=== PATIENT | male | born 1950 | race Caucasian/White ===

== ENCOUNTER 2023-09-29 18:21 | Inpatient (IN) | payer MEDICARE, MEDICAID ==
[~2023-09-29] VITALS: Ht 180.3 cm; Wt 142.0 kg
[2023-09-29] MEDS ORDERED: nitroGLYCERIN 0.4mg SUBLingual tab SL PRN (18:55)
[2023-09-29] MEDS: morphine 4 MG/ML inj SYRINge IV ONE (19:29)
[2023-09-29 19:42] LABS: BASOPHILS # (AUTO) 0.1 X10'3 (0-0.2); BASOPHILS % (AUTO) 1.1 % (0-1); EOSINOPHILS # (AUTO) 0.3 X10'3 (0-0.9); EOSINOPHILS % (AUTO) 4.3 % (0-6); HEMATOCRIT 43.3 % (42.0-52.0); HEMOGLOBIN 14.3 g/dl (14.0-17.9); LYMPHOCYTES # (AUTO) 1.9 X10'3 (1.1-4.8); LYMPHOCYTES % (AUTO) 31.3 % (21-51); MEAN CORPUSCULAR HEMOGLOBIN 28.9 PG (27.0-31.0); MEAN CORPUSCULAR HGB CONC 33.1 g/dL (33.0-36.5); MEAN CORPUSCULAR VOLUME 87.5 FL (78-98); MEAN PLATELET VOLUME 7.8 FL (7.4-10.4); MONOCYTES # (AUTO) 0.5 X10'3 (0-0.9); MONOCYTES % (AUTO) 8.8 % (2-12); NEUTROPHILS # (AUTO) 3.3 X10'3 (1.8-7.7); NEUTROPHILS % (AUTO) 54.5 % (42-75); PLATELET COUNT 101 X10'3 (140-440); RED BLOOD COUNT 4.95 X10'6 (4.70-6.10); RED CELL DISTRIBUTION WIDTH 16.4 % (11.5-14.5)
[2023-09-29 19:59] LABS: ALBUMIN 2.6 G/DL (3.4-5.0); ANION GAP 6 (8-16); BLOOD UREA NITROGEN 25 MG/DL (7-18); BUN/CREATININE RATIO 30.5 (10.0-20.0); CALCIUM 8.4 MG/DL (8.5-10.1); CHLORIDE 107 MMOL/L (99-107); CREATININE 0.82 MG/DL (0.60-1.10); GLUCOSE 117 MG/DL (70-104); LIPASE 32 U/L (16-77); POTASSIUM 4.5 MMOL/L (3.5-5.1); PRO BRAIN NATRIURETIC PEPTIDE 3529 PG/ML (0-125); SODIUM 140 MMOL/L (135-145); TOTAL CARBON DIOXIDE 27.5 MMOL/L (24-32); eCRCL 84 ML/MIN; eGFR > 90 ML/MIN
[2023-09-29] MEDS: normal saline 1000ml 1,000 ML IV ONE (21:16)
[2023-09-29] MEDS: fentaNYL/PF 50MCG/1 ML 2ML syringe IV ONE (21:16)
[2023-09-29 21:17] LABS: D-DIMER 0.45 MG/L FEU (0-0.50)
[2023-09-29] MEDS: diphenhydrAMINE 50 mg/ml inj IV ONE (22:33)
[2023-09-30] MEDS ORDERED: magnesium hydroxide 30ml (MOM) UD suspension PO PRN (01:00)
[2023-09-30] MEDS ORDERED: magnesium 4gm in 100ml NS 100 ML IV PRN (01:00)
[2023-09-30] MEDS ORDERED: acetaminophen 325mg tablet PO PRN (01:00)
[2023-09-30] MEDS ORDERED: potassium Cl 40MEQ/1/2NS 520ml 520 ML IV PRN (01:00)
[2023-09-30] MEDS ORDERED: mag hydrox/Alum hydrox/simeth 30ml oral suspension PO PRN (01:00)
[2023-09-30] MEDS ORDERED: ondansetron/PF 4mg/2ml inj IV PRN (01:00)
[2023-09-30] MEDS ORDERED: magnesium Cl slow-release 64mg tablet PO PRN (01:00)
[2023-09-30] MEDS ORDERED: potassium Cl 20 mEq SR tablet PO PRN ×2 (01:00)
[2023-09-30] MEDS ORDERED: nitroGLYCERIN 0.4mg SUBLingual tab SL PRN (01:05)
[2023-09-30] MEDS ORDERED: aminophylline 250mg/10ml inj. IV PRN (01:05)
[2023-09-30] MEDS ORDERED: metoprolol tartrate 1mg/ml inj IV PRN (01:05)
[2023-09-30] MEDS ORDERED: regadenoson 0.4mg/5ml syringe IV PRN (01:05)
[2023-09-30] MEDS: docusate sod 100mg capsule PO SCH (07:12)
[2023-09-30] MEDS: oxyCODONE SR 10mg (sust. release) tab PO ONE (07:15)
[2023-09-30] MEDS ORDERED: APIX5TAB3 PO (07:21)
[2023-09-30] MEDS ORDERED: METH-806 PO (07:21)
[2023-09-30] MEDS ORDERED: LORA-268 (07:21)
[2023-09-30] MEDS ORDERED: OXYC15TA (07:21)
[2023-09-30] MEDS ORDERED: FOLI1TAB27 PO (07:21)
[2023-09-30] MEDS ORDERED: ATOR40TA72 PO (07:21)
[2023-09-30] MEDS ORDERED: LEVO150T8 PO (07:21)
[2023-09-30] MEDS ORDERED: TEST200V33 IM (07:21)
[2023-09-30] MEDS ORDERED: SOTA80TA (07:21)
[2023-09-30] MEDS ORDERED: heparin, porcine 5000 units/ml vial SQ SCH (08:00)
[2023-09-30] MEDS: oxyCODONE IR 5mg (immed. release) tablet PO ONE (08:39)
[2023-09-30] MEDS: sotalol HCl 40mg (1/2 tablet) PO SCH (08:40)
[2023-09-30] MEDS: apixaban 5mg tablet PO SCH (08:40)
[2023-09-30] MEDS: furosemide 40mg/4ml inj IV SCH (09:38)
[2023-09-30] MEDS: diltiazem 5mg/ml 5ml inj. IV ONE (09:38)
[2023-09-30] MEDS: methadone 5mg tablet PO SCH (13:44)
[2023-09-30] MEDS: flecainide 50mg tablet PO SCH (18:12)
[2023-09-30] MEDS: metoprolol tartrate 50mg tablet PO SCH (18:12)
[2023-09-30] MEDS ORDERED: OXYC15TA PO (19:21)
[2023-09-30] MEDS ORDERED: apixaban 5mg tablet PO SCH (20:00)
[2023-09-30 23:00] VITALS: BP 130/50; PULSE 107; PULSE 74; RESP 14; TEMP 97.6; O2SAT 94
[2023-10-01] VITALS (7 sets, daily range): BP systolic 83–130; BP diastolic 48–83; PULSE 56–104; RESP 14–20; TEMP 97.1–98.2; O2SAT 93–99
[2023-10-01] MEDS: oxyCODONE IR 5mg (immed. release) tablet PO ONE (00:35)
[2023-10-01 07:49] LABS: BASOPHILS % (AUTO) 0.6 % (0-1); EOSINOPHILS # (AUTO) 0.2 X10'3 (0-0.9); EOSINOPHILS % (AUTO) 3.4 % (0-6); HEMATOCRIT 44.3 % (42.0-52.0); HEMOGLOBIN 14.6 g/dl (14.0-17.9); LYMPHOCYTES # (AUTO) 2.4 X10'3 (1.1-4.8); LYMPHOCYTES % (AUTO) 33.4 % (21-51); MEAN CORPUSCULAR HEMOGLOBIN 28.9 PG (27.0-31.0); MEAN CORPUSCULAR VOLUME 87.5 FL (78-98); MEAN PLATELET VOLUME 8.9 FL (7.4-10.4); MONOCYTES # (AUTO) 0.6 X10'3 (0-0.9); MONOCYTES % (AUTO) 8.4 % (2-12); NEUTROPHILS # (AUTO) 3.9 X10'3 (1.8-7.7); NEUTROPHILS % (AUTO) 54.2 % (42-75); PLATELET COUNT 105 X10'3 (140-440); RED BLOOD COUNT 5.06 X10'6 (4.70-6.10); RED CELL DISTRIBUTION WIDTH 16.4 % (11.5-14.5); WHITE BLOOD COUNT 7.2 X10'3 (4.5-11.0)
[2023-10-01 08:10] LABS: ALBUMIN 2.5 G/DL (3.4-5.0); ANION GAP 6 (8-16); BLOOD UREA NITROGEN 22 MG/DL (7-18); BUN/CREATININE RATIO 22.4 (10.0-20.0); CALCIUM 7.8 MG/DL (8.5-10.1); CHLORIDE 101 MMOL/L (99-107); CREATININE 0.98 MG/DL (0.60-1.10); GLUCOSE 127 MG/DL (70-104); POTASSIUM 3.7 MMOL/L (3.5-5.1); SODIUM 135 MMOL/L (135-145); TOTAL CARBON DIOXIDE 27.9 MMOL/L (24-32); eCRCL 70 ML/MIN; eGFR 75 ML/MIN
[2023-10-01] MEDS: atorvastatin 20mg tablet PO SCH (08:57)
[2023-10-01] MEDS: folic acid 1mg tablet PO SCH (08:57)
[2023-10-01] MEDS: levoTHYROXINE 75mcg tablet PO SCH (09:01)
[2023-10-01] MEDS: furosemide 20MG tablet PO ONE (10:16)
[2023-10-01] MEDS: oxyCODONE IR 5mg (immed. release) tablet PO SCH (14:00)
[2023-10-01] MEDS: furosemide 40mg tablet PO SCH (20:36)
[2023-10-02] VITALS (8 sets, daily range): BP systolic 95–133; BP diastolic 52–79; PULSE 63–80; RESP 16–20; TEMP 96.9–98; O2SAT 94–99
[2023-10-02] MEDS: temazepam 15mg capsule PO ONE (00:27)
[2023-10-02 06:15] LABS: BASOPHILS % (AUTO) 0.6 % (0-1); EOSINOPHILS # (AUTO) 0.3 X10'3 (0-0.9); EOSINOPHILS % (AUTO) 3.3 % (0-6); HEMATOCRIT 47.4 % (42.0-52.0); HEMOGLOBIN 15.7 g/dl (14.0-17.9); LYMPHOCYTES # (AUTO) 3.1 X10'3 (1.1-4.8); LYMPHOCYTES % (AUTO) 39.1 % (21-51); MEAN CORPUSCULAR HEMOGLOBIN 28.8 PG (27.0-31.0); MEAN CORPUSCULAR HGB CONC 33.2 g/dL (33.0-36.5); MEAN CORPUSCULAR VOLUME 86.6 FL (78-98); MEAN PLATELET VOLUME 8.1 FL (7.4-10.4); MONOCYTES # (AUTO) 0.7 X10'3 (0-0.9); MONOCYTES % (AUTO) 8.8 % (2-12); NEUTROPHILS # (AUTO) 3.9 X10'3 (1.8-7.7); NEUTROPHILS % (AUTO) 48.2 % (42-75); PLATELET COUNT 127 X10'3 (140-440); RED BLOOD COUNT 5.47 X10'6 (4.70-6.10); RED CELL DISTRIBUTION WIDTH 16.1 % (11.5-14.5)
[2023-10-02 06:31] LABS: ALBUMIN 2.8 G/DL (3.4-5.0); ANION GAP 7 (8-16); BLOOD UREA NITROGEN 28 MG/DL (7-18); BUN/CREATININE RATIO 26.7 (10.0-20.0); CALCIUM 8.5 MG/DL (8.5-10.1); CHLORIDE 101 MMOL/L (99-107); CREATININE 1.05 MG/DL (0.60-1.10); GLUCOSE 106 MG/DL (70-104); POTASSIUM 4.3 MMOL/L (3.5-5.1); SODIUM 138 MMOL/L (135-145); eCRCL 66 ML/MIN; eGFR 69 ML/MIN
[2023-10-02] MEDS ORDERED: FURO40TA4 PO (10:57)
[2023-10-02] MEDS ORDERED: METO50TA16 PO (10:57)
[2023-10-02] MEDS ORDERED: TAM50T PO (10:57)
== END 2023-10-02 12:30 | disposition home or self-care (01) | DRG 291 ==
LOC: ER 18:21 → ED HOLD 09-30 01:04 → PCU 3S 09-30 22:50
PROVIDERS: ADMIT Internal Medicine Sleep Medicine; ATTEND Internal Medicine
DX: I11.0 Hypertensive heart disease with heart failure (principal); I50.33 Acute on chronic diastolic (congestive) heart failure; Z68.41 Body mass index [BMI] 40.0-44.9, adult; I48.0 Paroxysmal atrial fibrillation; G47.33 Obstructive sleep apnea (adult) (pediatric); I20.9 Angina pectoris, unspecified; E66.9 Obesity, unspecified; E03.9 Hypothyroidism, unspecified; G89.4 Chronic pain syndrome; E78.00 Pure hypercholesterolemia, unspecified
CPT/HCPCS: 36415; 71045; 80048; 83690; 83735; 83880; 84443; 84484; 85025; 85379; 87081; 93005; 93306; 99285; A6590; G0378; J1200; J1940; J3010; J3490; J7030

== ENCOUNTER 2023-10-13 14:39 | Inpatient (IN) | payer MEDICARE, MEDICAID ==
[~2023-10-13] VITALS: Ht 177.8 cm; Wt 113.0 kg
[~2023-10-13 14:39] MED LIST: APIX5TAB3 PO; ATOR40TA72 PO; FOLI1TAB27 PO; FURO40TA4 PO; LEVO150T8 PO; LORA-268; METH-806 PO; METO50TA16 PO; OXYC15TA PO; TAM50T PO; TEST200V33 IM
[2023-10-13 15:20] LABS: BASOPHILS % (AUTO) 0.6 % (0-1); EOSINOPHILS # (AUTO) 0.2 X10'3 (0-0.9); EOSINOPHILS % (AUTO) 2.8 % (0-6); HEMATOCRIT 46.6 % (42.0-52.0); HEMOGLOBIN 15.3 g/dl (14.0-17.9); LYMPHOCYTES # (AUTO) 1.9 X10'3 (1.1-4.8); LYMPHOCYTES % (AUTO) 25.5 % (21-51); MEAN CORPUSCULAR HGB CONC 32.9 g/dL (33.0-36.5); MEAN CORPUSCULAR VOLUME 88.4 FL (78-98); MEAN PLATELET VOLUME 7.6 FL (7.4-10.4); MONOCYTES # (AUTO) 0.5 X10'3 (0-0.9); MONOCYTES % (AUTO) 6.6 % (2-12); NEUTROPHILS # (AUTO) 4.9 X10'3 (1.8-7.7); NEUTROPHILS % (AUTO) 64.5 % (42-75); PLATELET COUNT 140 X10'3 (140-440); RED BLOOD COUNT 5.27 X10'6 (4.70-6.10); WHITE BLOOD COUNT 7.6 X10'3 (4.5-11.0)
[2023-10-13] MEDS: furosemide 10 MG/1 ML 10ml inj IV ONE (15:25)
[2023-10-13 15:48] LABS: ALBUMIN 2.9 G/DL (3.4-5.0); ANION GAP 3 (8-16); BLOOD UREA NITROGEN 21 MG/DL (7-18); BUN/CREATININE RATIO 23.6 (10.0-20.0); CHLORIDE 104 MMOL/L (99-107); CREATININE 0.89 MG/DL (0.60-1.10); GLUCOSE 114 MG/DL (70-104); MAGNESIUM 2.1 MG/DL (1.5-2.4); POTASSIUM 4.4 MMOL/L (3.5-5.1); PRO BRAIN NATRIURETIC PEPTIDE 1762 PG/ML (0-125); SODIUM 139 MMOL/L (135-145); TOTAL CARBON DIOXIDE 32.3 MMOL/L (24-32); eCRCL 75 ML/MIN; eGFR 84 ML/MIN
[2023-10-13] MEDS: diltiazem 5mg/ml 5ml inj. IV ONE ×3 (17:10→23:51)
[2023-10-13] MEDS ORDERED: acetaminophen 325mg tablet PO PRN ×2 (17:45)
[2023-10-13] MEDS ORDERED: morphine 2 MG/ML inj. syringe IV PRN ×2 (17:45)
[2023-10-13] MEDS ORDERED: HYDROcodone/acetaminophen 5mg/325mg tablet PO PRN (17:45)
[2023-10-13] MEDS ORDERED: ondansetron/PF 4mg/2ml inj IV PRN (17:45)
[2023-10-13] MEDS ORDERED: mag hydrox/Alum hydrox/simeth 30ml oral suspension PO PRN (17:45)
[2023-10-13] MEDS ORDERED: magnesium hydroxide 30ml (MOM) UD suspension PO PRN (17:45)
[2023-10-13] MEDS ORDERED: SOTA80TA PO (18:09)
[2023-10-13] MEDS: oxyCODONE IR 5mg (immed. release) tablet PO SCH (18:56)
[2023-10-13 19:07] LABS: POTASSIUM 4.3 MMOL/L (3.5-5.1)
[2023-10-13] MEDS: docusate sod 100mg capsule PO SCH (20:00)
[2023-10-13] MEDS: apixaban 5mg tablet PO SCH (20:43)
[2023-10-13] MEDS: furosemide 20 MG/2 ML vial IV SCH (21:19)
[2023-10-13 22:00] VITALS: BP 107/71; PULSE 70; RESP 15; TEMP 98.3; O2SAT 97
[2023-10-13] MEDS: methadone 5mg tablet PO SCH (22:00)
[2023-10-14] VITALS (10 sets, daily range): BP systolic 91–149; BP diastolic 50–90; PULSE 61–127; RESP 12–20; TEMP 97.6–98.2; O2SAT 92–97
[2023-10-14] MEDS: flecainide 50mg tablet PO SCH (05:17)
[2023-10-14] MEDS: metoprolol tartrate 50mg tablet PO SCH (05:17)
[2023-10-14] MEDS: levoTHYROXINE 75mcg tablet PO SCH (07:18)
[2023-10-14] MEDS: folic acid 1mg tablet PO SCH (07:19)
[2023-10-14] MEDS: atorvastatin 20mg tablet PO SCH (07:19)
[2023-10-14 09:08] LABS: BASOPHILS % (AUTO) 0.3 % (0-1); EOSINOPHILS # (AUTO) 0.3 X10'3 (0-0.9); HEMATOCRIT 48.9 % (42.0-52.0); HEMOGLOBIN 16.2 g/dl (14.0-17.9); LYMPHOCYTES # (AUTO) 3.1 X10'3 (1.1-4.8); LYMPHOCYTES % (AUTO) 32.7 % (21-51); MEAN CORPUSCULAR HEMOGLOBIN 29.3 PG (27.0-31.0); MEAN CORPUSCULAR HGB CONC 33.1 g/dL (33.0-36.5); MEAN CORPUSCULAR VOLUME 88.5 FL (78-98); MEAN PLATELET VOLUME 7.9 FL (7.4-10.4); MONOCYTES # (AUTO) 0.6 X10'3 (0-0.9); MONOCYTES % (AUTO) 6.6 % (2-12); NEUTROPHILS # (AUTO) 5.5 X10'3 (1.8-7.7); NEUTROPHILS % (AUTO) 57.4 % (42-75); PLATELET COUNT 178 X10'3 (140-440); RED BLOOD COUNT 5.52 X10'6 (4.70-6.10); RED CELL DISTRIBUTION WIDTH 17.2 % (11.5-14.5); WHITE BLOOD COUNT 9.5 X10'3 (4.5-11.0)
[2023-10-14 09:56] LABS: ALBUMIN 3.1 G/DL (3.4-5.0); ANION GAP 9 (8-16); BLOOD UREA NITROGEN 22 MG/DL (7-18); BUN/CREATININE RATIO 21.8 (10.0-20.0); CALCIUM 8.9 MG/DL (8.5-10.1); CHLORIDE 99 MMOL/L (99-107); CREATININE 1.01 MG/DL (0.60-1.10); POTASSIUM 4.1 MMOL/L (3.5-5.1); SODIUM 137 MMOL/L (135-145); eCRCL 66 ML/MIN; eGFR 72 ML/MIN
[2023-10-14 10:06] LABS: GLUCOSE 120 MG/DL (70-104)
[2023-10-14] MEDS: LIDOcaine 5% patch TP SCH (10:58)
[2023-10-14] MEDS: diltiazem 30mg tablet PO SCH (10:58)
[2023-10-14] MEDS ORDERED: ondansetron 4mg rapidly disintigrating tab PO PRN (13:33)
[2023-10-14] MEDS: temazepam 15mg capsule PO ONE (22:56)
[2023-10-15 02:00] VITALS: BP 96/68; PULSE 60; RESP 19; TEMP 97.6; O2SAT 95
[2023-10-15] MEDS ORDERED: zolpidem 5mg tablet PO PRN (03:30)
[2023-10-15 04:17] VITALS: BP 119/78; PULSE 119
[2023-10-15] MEDS: metoprolol tartrate 1mg/ml inj IV ONE (04:19)
[2023-10-15 06:00] VITALS: BP 110/85; PULSE 98; RESP 17; TEMP 97.7; O2SAT 95
[2023-10-15] MEDS: diltiazem CD 120mg capsule (once-daily) PO SCH (07:41)
[2023-10-15 07:43] LABS: BASOPHILS % (AUTO) 0.3 % (0-1); EOSINOPHILS # (AUTO) 0.3 X10'3 (0-0.9); EOSINOPHILS % (AUTO) 2.7 % (0-6); HEMATOCRIT 46.1 % (42.0-52.0); HEMOGLOBIN 15.2 g/dl (14.0-17.9); LYMPHOCYTES # (AUTO) 2.4 X10'3 (1.1-4.8); LYMPHOCYTES % (AUTO) 25.5 % (21-51); MEAN CORPUSCULAR HGB CONC 32.9 g/dL (33.0-36.5); MEAN CORPUSCULAR VOLUME 88.1 FL (78-98); MEAN PLATELET VOLUME 7.9 FL (7.4-10.4); MONOCYTES # (AUTO) 0.7 X10'3 (0-0.9); MONOCYTES % (AUTO) 7.8 % (2-12); NEUTROPHILS # (AUTO) 5.9 X10'3 (1.8-7.7); NEUTROPHILS % (AUTO) 63.7 % (42-75); PLATELET COUNT 155 X10'3 (140-440); RED BLOOD COUNT 5.23 X10'6 (4.70-6.10); RED CELL DISTRIBUTION WIDTH 16.9 % (11.5-14.5); WHITE BLOOD COUNT 9.3 X10'3 (4.5-11.0)
[2023-10-15 07:48] LABS: ALBUMIN 3.1 G/DL (3.4-5.0); ANION GAP 4 (8-16); BLOOD UREA NITROGEN 26 MG/DL (7-18); BUN/CREATININE RATIO 23.9 (10.0-20.0); CALCIUM 8.9 MG/DL (8.5-10.1); CHLORIDE 99 MMOL/L (99-107); CREATININE 1.09 MG/DL (0.60-1.10); GLUCOSE 102 MG/DL (70-104); POTASSIUM 4.3 MMOL/L (3.5-5.1); SODIUM 136 MMOL/L (135-145); TOTAL CARBON DIOXIDE 33.1 MMOL/L (24-32); eCRCL 61 ML/MIN; eGFR 66 ML/MIN
[2023-10-15 08:00] VITALS: RESP 17; O2SAT 95
[2023-10-15] MEDS ORDERED: CARCD120C PO (10:01)
[2023-10-15] MEDS ORDERED: METO50TA16 PO (10:01)
[2023-10-15 11:00] VITALS: BP 91/56; PULSE 91; RESP 15; TEMP 97.8; O2SAT 93
[2023-10-15 11:48] VITALS: RESP 16
== END 2023-10-15 12:58 | disposition home or self-care (01) | DRG 309 ==
LOC: ER 14:39 → ED HOLD 17:44 → PCU 3S 21:47
PROVIDERS: ADMIT Internal Medicine; ATTEND Internal Medicine
DX: I48.0 Paroxysmal atrial fibrillation (principal); Z68.41 Body mass index [BMI] 40.0-44.9, adult; I50.9 Heart failure, unspecified; E66.01 Morbid (severe) obesity due to excess calories; I27.81 Cor pulmonale (chronic); E03.9 Hypothyroidism, unspecified; G47.30 Sleep apnea, unspecified; G89.29 Other chronic pain; Z79.01 Long term (current) use of anticoagulants; Z79.899 Other long term (current) drug therapy
CPT/HCPCS: 36415; 71045; 80048; 83735; 83880; 84132; 84484; 85025; 87081; 93005; 96374; 96375; 99285; A6258; G0378; J1940; J3490

== ENCOUNTER 2024-07-06 15:12 | Emergency (ER) | payer MEDICARE, MEDICAID ==
[~2024-07-06] VITALS: Ht 180.3 cm; Wt 125.2 kg
[~2024-07-06 15:12] MED LIST changes: +BUPR1FIL20 SL; +CARCD120C PO; +FLO0.4C PO; -METH-806 PO; -OXYC15TA PO; -TEST200V33 IM; +VANC125C5 PO
[2024-07-06 16:05] LABS: BASOPHILS % (AUTO) 0.6 % (0-1); EOSINOPHILS # (AUTO) 0.1 X10'3 (0-0.9); EOSINOPHILS % (AUTO) 1.9 % (0-6); HEMATOCRIT 36.5 % (42.0-52.0); HEMOGLOBIN 11.8 g/dl (14.0-17.9); LYMPHOCYTES # (AUTO) 1.4 X10'3 (1.1-4.8); LYMPHOCYTES % (AUTO) 27.9 % (21-51); MEAN CORPUSCULAR HEMOGLOBIN 26.9 PG (27.0-31.0); MEAN CORPUSCULAR HGB CONC 32.4 g/dL (33.0-36.5); MEAN CORPUSCULAR VOLUME 82.9 FL (78-98); MEAN PLATELET VOLUME 7.8 FL (7.4-10.4); MONOCYTES # (AUTO) 0.4 X10'3 (0-0.9); MONOCYTES % (AUTO) 8.1 % (2-12); NEUTROPHILS # (AUTO) 3.2 X10'3 (1.8-7.7); NEUTROPHILS % (AUTO) 61.5 % (42-75); PLATELET COUNT 142 X10'3 (140-440); RED CELL DISTRIBUTION WIDTH 16.8 % (11.5-14.5); WHITE BLOOD COUNT 5.2 X10'3 (4.5-11.0)
[2024-07-06 16:23] LABS: ALANINE AMINOTRANSFERASE 22 U/L (12-78); ALBUMIN 2.8 G/DL (3.4-5.0); ALBUMIN/GLOBULIN RATIO 0.8 (1.1-1.5); ALKALINE PHOSPHATASE 52 IU/L (46-116); ANION GAP 6 (8-16); ASPARTATE AMINO TRANSFERASE 17 U/L (10-37); BILIRUBIN,TOTAL 0.2 MG/DL (0.1-1.0); BLOOD UREA NITROGEN 23 MG/DL (7-18); BUN/CREATININE RATIO 27.7 (10.0-20.0); CALCIUM 8.6 MG/DL (8.5-10.1); CHLORIDE 106 MMOL/L (99-107); CREATININE 0.83 MG/DL (0.60-1.10); GLUCOSE 111 MG/DL (70-104); POTASSIUM 3.8 MMOL/L (3.5-5.1); PRO BRAIN NATRIURETIC PEPTIDE 2042 PG/ML (0-450); SODIUM 143 MMOL/L (135-145); TOTAL CARBON DIOXIDE 30.8 MMOL/L (24-32); TOTAL PROTEIN 6.5 G/DL (6.4-8.2); eCRCL 82 ML/MIN; eGFR 90 ML/MIN
[2024-07-06] MEDS: diltiazem 30mg tablet PO ONE (18:30)
[2024-07-06] MEDS ORDERED: DILT30TA34 PO (20:18)
[2024-07-06 20:30] VITALS: BP 99/61; PULSE 93; RESP 13; TEMP 98; O2SAT 99
== END 2024-07-06 20:49 | disposition home or self-care (01) ==
LOC: ER 15:13
DX: I48.20 Chronic atrial fibrillation, unspecified (principal); I50.9 Heart failure, unspecified
CPT/HCPCS: 36415; 71045; 80053; 83880; 84443; 84484; 85025; 93005; 99285